=== PATIENT | male | born 1950 | race Caucasian/White ===

== ENCOUNTER → 2020-08-30 04:43 | Outpatient (CLI) | payer MEDICARE, BC, SELFPAY ==
[2020-08-30 19:57] LABS: SARS-CoV-2 RNA PCR Negative
== END ==
PROVIDERS: PCP Family Medicine; Visit Provider Plastic Surgery
DX: Z01.812 Encounter for preprocedural laboratory examination (principal); Z20.822 Contact with and (suspected) exposure to COVID-19
CPT/HCPCS: C9803; U0003; U0005

== ENCOUNTER 2020-09-02 02:12 | Day surgery (SDC) | payer MEDICARE, BC, SELFPAY ==
[2020-08-27 15:55] VITALS: BMI 33.7
[2020-09-02] VITALS (14 sets, daily range): BP systolic 129–153; BP diastolic 8–94; PULSE 68–75; RESP 14–18; TEMP 36.1; O2SAT 91–99
--- NOTE | 2020-09-02 07:22 | WPDHPUPDATE1 ---
History and Physical Update Update Date/Time: 09/02/20 07:22 History and Physical has been reviewed, including an updated exam of the patient. There are NO changes in the patient's condition. Risks, benefits, and alternatives have been discussed and questions answered. Patient agrees to proceed with procedure.
--- NOTE | 2020-09-02 13:29 | PM.OP ---
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 Anesthesia: local Surgeon: Sebastián Flores MD Drains: No Packing: No Pathology: yes Complications: No immediate complications Condition: stable Disposition: same day
[2020-09-02] MEDS: LIDO 1%/EPINEPHRINE 1:100,000 50 ML VIAL INFILTRATE (14:25)
[2020-09-02] MEDS: BACITRACIN OINTMENT 15 GM TUBE 1 APPLIC TOPICAL (14:28)
--- NOTE | 2020-09-02 14:37 | P.OP_ITS ---
Procedure Note - Detailed Date of procedure: 09/02/20 Pre-op diagnosis: basal cell carcinoma right perieruglar cheek Basal cell carcinoma of the right preauricular cheek Post-op diagnosis: same Procedure performed: 1.5 cm excision of basal cell carcinoma of the right preauricular cheek with frozen section and permanent section with intermediate repair 3.3 cm Description of procedure: The site was marked on the patient's right posterior cheek near his ear in the holding area. He was taken to the operating room and placed supine on the operating table. A time-out was held and confirmed. The face was prepped and draped in usual fashion. The site was carefully marked for excision and locally infiltrated with 1% lidocaine with epinephrine. The full- thickness skin ellipse was taken out. The most superior aspect was marked with a suture for 12:00. The pathologist reported that there was indeed basal cell carcinoma, and margins at the 12-1 and 6-7 o'clock edges were very close. She recommended permanent sections. Additional tissue was taken from the 12 to 1 o'clock margin with the new 1:00 margin was indicated with suture. Specimen was also taken from the 6 to 12 o'clock margin with the new 7:00 margin marked with suture. These were sent separately for permanent section. The wound margins were undermined more than a cm in all directions and the dermis was approximated with intradermal 4-0 Vicryl sutures. A standing cone was removed on the caudal end and the skin was closed with a running 5 0 nylon tolerated well Anesthesia: local Surgeon: Sebastián Flores MD Estimated blood loss (mL): 5 Drains: No Packing: No Pathology: yes Complications: No immediate complications Disposition: same day
== END 2020-09-02 15:00 | disposition home or self-care (01) ==
PROVIDERS: PCP Nurse Practitioner; Visit Provider Plastic Surgery
PROC: (CPT 11642; principal; 2020-09-02 13:30)
DX: C44.319 Basal cell carcinoma of skin of other parts of face (principal); Z85.820 Personal history of malignant melanoma of skin; Z87.891 Personal history of nicotine dependence
CPT/HCPCS: 11642; 12052; 88305; 88331; A9270